=== PATIENT | male | born 1960 | race Caucasian/White ===

== ENCOUNTER 2017-09-30 11:09 | Emergency (ER) | payer OTHER ==
[~2017-09-30 11:09] MED LIST: ATOR10TA15 PO; CLIN300C5 PO; LOSA25TA PO
[2017-09-30 11:26] VITALS: BP 120/69; PULSE 91; RESP 20; TEMP 98.3; O2SAT 100
--- NOTE | 2017-09-30 12:32 | RADRPT ---
EXAM DATE/TIME: 09/30/2017 11:41 [facility] COMPARISON: No previous studies available for comparison. INDICATIONS : Left arm swelling. MEDICAL HISTORY : Hypercholesterolemia. Hypertension. Lymphoma. Chemotherapy. SURGICAL HISTORY : Left foot surgery. Right axillary surgery. ENCOUNTER: Initial ACUITY: 1 day PAIN SCORE: 4/10 LOCATION: Left arm. FINDINGS: Nonocclusive thrombus seen in the basalic vein. The brachial vein is patent. The axillary vein is p atent. CONCLUSION: Minimal nonocclusive thrombus basalic vein Kris Jacobs MD FACR on September 30, 2017 at 12:30 Board Certified Radiologist. This report was verified electronically.
--- NOTE | 2017-09-30 13:52 | PD ---
HPI Chief Complaint: Edema Time Seen by Provider: 13:50 Travel History International Travel<30 days: No Contact w/Intl Traveler<30days: No Traveled to known affect area: No History of Present Illness HPI 57-year-old male presents to emergency department for an ultrasound of his left upper extremity. He was seen initially in [facility] [place]. He was sent here to rule out DVT. He reports pain and swelling to his left lateral antecubital area for the past 2 days. He has history of chemotherapy and radiation therapy that he completed 2 and 3 months ago for follicular lymphoma. He is currently in remission. PFS Past Medical History Cancer: Yes (lymphoma) Cardiovascular Problems: Yes (HTN) High Cholesterol: Yes Chemotherapy: Yes (3 months ago) Diminished Hearing: No Hypertension: Yes Radiation Therapy: Yes (Jul 2017) Past Surgical History Other Surgery: Yes (right axillary) Social History Alcohol Use: Yes (occasional) Tobacco Use: No Substance Use: No Allergies-Medications (Allergen,Severity, Reaction): Coded Allergies: No Known Allergies (Unverified , 09/30/17) Reported Meds & Prescriptions Reported Meds & Active Scripts Active Tramadol (Tramadol HCl) 50 Mg Tab 50 Mg PO Q4H PRN Clindamycin (Clindamycin HCl) 300 Mg Cap 300 Mg PO TID 7 Days Reported Atorvastatin (Atorvastatin Calcium) 10 Mg Tab 10 Mg PO HS Losartan (Losartan Potassium) 25 Mg Tab 12.5 Mg PO DAILY Review of Systems Except as stated in HPI: all other systems reviewed are Neg Physical Exam Narrative GENERAL: Well-nourished, well-developed male patient, in no acute distress; afebrile, nontoxic-appearing SKIN: There is an indurated area to the left lateral antecubital area which measures about 3 cm in diameter. It is nonfluctuant, and there is no pointing or drainage. There is a zone of inflammation around it but no lymphangitis. Left upper extremity is supple and non-tense with 2+ radial pulses and sensory intact. no lymphangitis. HEAD: Atraumatic. Normocephalic. EYES: Pupils equal and round. No scleral icterus. No injection or drainage. ENT: Mucosa pink and moist. Airway patent. NECK: Trachea midline. CARDIOVASCULAR: Regular rate. RESPIRATORY: No accessory muscle use. GASTROINTESTINAL: Rounded. MUSCULOSKELETAL: No obvious deformities. No clubbing. No cyanosis. No edema. NEUROLOGICAL: Awake and alert. Oriented 3. No obvious cranial nerve deficits. Motor grossly within normal limits. Normal speech. PSYCHIATRIC: Appropriate mood and affect; insight and judgment normal. Data Data Last Documented VS Vital Signs Date Time Temp Pulse Resp B/P (MAP) Pulse Ox O2 Delivery O2 Flow Rate FiO2 09/30/17 14:04 18 Room Air 09/30/17 11:26 98.3 91 120/69 (86) 100 Orders Orders Us Arm Venous Doppler (09/30/17 ) Ed Discharge Order (09/30/17 14:22) [facility] Medical Decision Making Medical Screen Exam Complete: Yes Emergency Medical Condition: Yes Medical Record Reviewed: Yes Differential Diagnosis DVT, superficial thrombosis, cellulitis Narrative Course 57-year-old male that was initially evaluated and [facility] [place]. See provider's note for initial history and physical. He was sent here for ultrasound of the left upper extremity to rule out DVT. Left upper extremity venous Doppler ultrasound ordered in triage. He has noted cellulitis of the left upper extremity. The area was marked with a surgical marker. 1351: Left upper extremity venous Doppler ultrasound concludes: Upper Extremity Ultrasound 09/30/17 0000 Signed Impressions: Service Date/Time: Saturday, September 30, 2017 11:41 - CONCLUSION: Minimal nonocclusive thrombus basalic vein Kris Jacobs MD FACR Patient provided a copy of the ultrasound report. I reviewed his medical record from [facility] and he was given IV clindamycin during his visit. He was given a prescription for clindamycin which he says is currently at a pharmacy being filled. I offered him pain medication, but he is driving and declined a nonnarcotic. Tramadol prescribed for home. Discussed precautions to return to the emergency department. Patient to do warm compresses to the left upper extremity. Instructed patient to follow up with primary care provider. Patient verbalizes understanding and agreement with treatment plan. Patient is medically cleared and stable for discharge. Discussed reasons to return to the emergency department. Patient agrees with treatment plan. The patients vital signs are stable and the patient is stable for outpatient follow-up and treatment. Patient discharged home, stable and in no acute distress. Diagnosis Primary Impression: Left arm cellulitis Additional Impressions: Non-occlusive thrombus Basilic vein thrombosis Referrals: Primary Care Physician Patient Instructions: Cellulitis (ED), General Instructions Additional Instructions: Clindamycin as prescribed and complete full course of antibiotics Tramadol as prescribed and as needed for pain Ibuprofen or Tylenol as directed nothing for pain and information Warm compresses to the affected extremity Elevate affected extremity Follow-up with primary care provider 1-2 days Return to the emergency department immediately with worsening of symptoms Med/Other Pt SpecificInfo: Prescription(s) given, No Change to Meds Scripts Tramadol (Tramadol) 50 Mg Tab 50 MG PO Q4H Y for PAIN, #12 TAB 0 Refills Prov: Emerita Da Silva 09/30/17 Disposition: 01 DISCHARGE HOME Condition: Stable Emerita Da Silva Sep 30, 2017 13:52
[2017-09-30] MEDS ORDERED: TRAM50TA PO (14:21)
== END 2017-09-30 15:16 | disposition home or self-care (01) ==
LOC: NEPD 11:09
DX: L03.114 Cellulitis of left upper limb (principal); I82.612 Acute embolism and thrombosis of superficial veins of left upper extremity; I10 Essential (primary) hypertension; E78.00 Pure hypercholesterolemia, unspecified; Z85.72 Personal history of non-Hodgkin lymphomas; Z79.899 Other long term (current) drug therapy
CPT/HCPCS: 93971; 99284